=== PATIENT | male | born 1980 | race Caucasian/White ===

== ENCOUNTER 2017-07-02 19:04 | Emergency (ER) | payer BC ==
[~2017-07-02] VITALS: Ht 180.3 cm; Wt 107.5 kg
[2017-07-02 19:24] VITALS: BP 153/87
== END 2017-07-02 20:31 | disposition home or self-care (01) ==
LOC: EME 19:04
DX: S00.81XA Abrasion of other part of head, initial encounter (principal); S00.01XA Abrasion of scalp, initial encounter; S80.01XA Contusion of right knee, initial encounter; Y00.XXXA Assault by blunt object, initial encounter; Y92.149 Unspecified place in prison as the place of occurrence of the external cause; Y99.0 Civilian activity done for income or pay
CPT/HCPCS: 99281; 99284